=== PATIENT | female | born 1970 ===

== ENCOUNTER 2017-10-15 13:35 | Outpatient (CLI) | payer OTHER | END 2017-10-15 13:48 | disposition home or self-care (01) | LOC: RAD 13:35 | DX: M25.511 Pain in right shoulder (principal) ==

== ENCOUNTER 2018-03-17 12:23 | Outpatient (CLI) | payer OTHER ==
[~2018-03-17 12:23] MED LIST: SULFASALAZINE; SULFASALAZINE500 MG PO
== END 2018-03-17 15:14 | disposition home or self-care (01) ==
LOC: RAD 12:23
DX: M17.12 Unilateral primary osteoarthritis, left knee (principal)